=== PATIENT | male | born 1980 | race Two or more races ===

== ENCOUNTER 2020-03-05 08:12 | Observation (INO) | payer OTHER ==
[2020-03-05] VITALS (16 sets, daily range): BP systolic 97–144; BP diastolic 59–82
[~2020-03-05] VITALS: Ht 172.7 cm; Wt 73.5 kg
[~2020-03-05 08:12] MED LIST: Acetaminophen (Non formulary) 100 ML IV ONE; Atropine Sulfate 0.4mg/ml inj IVP PRN; Dexamethasone 20mg/5ml IVP ONE; DiphenhydrAMINE 50mg/ml Inj IVP PRN; FLONASE ALLERG9.9 ML NS; HYDROcodone/Acetamin 5/325 tab ORAL PRN; HYDROcodone/Acetamin 7.5/325 tab ORAL PRN; Hydromorphone 0.5mg/0.5ml inj IVP PRN; Ketorolac 30mg Inj IV PRN; LORazepam Inj 2mg/ml 1ml IV PRN; LR 1000ml 1,000 ML IVLG SCH; Labetalol 5mg/ml 20ml vial IV PRN; Meperidine 25mg/0.5ml Inj (FOR RIGORS ONLY) IV PRN; Metoclopramide 10mg/2ml Inj IVP PRN; Midazolam 2mg/2ml Inj IVP PRN; PATADAY2.5 ML OP; ceFAZolin sod 1 GM in NS 55 ML IVPB ONE; fentaNYL 100 mcg/2 mL IV PRN; oxyCODONE HCL/Acetaminophen 5/325mg ORAL PRN
[2020-03-05] MEDS ORDERED: Thrombin 5000 units TOPIC ONE (08:42)
[2020-03-05] MEDS ORDERED: Lidocaine 1% Plain 30 ml INJ ONE ×2 (08:42→09:07)
[2020-03-05] MEDS ORDERED: Bacitracin 50000 Units Vial ONE (08:42)
[2020-03-05] MEDS ORDERED: Bupivacaine w/Epi 0.5% 30ml Vial INJ ONE (08:42)
[2020-03-05] MEDS ORDERED: Gelfoam Size TOPIC ONE (08:42)
--- NOTE | 2020-03-05 08:56 | Immediate Post-Op Evaluation ---
Immediate Post-Op Evalulation Immediate Post-Op Evalulation Procedure: L5-S1 Microdiscectomy Date of Evaluation: March 05, 2020 Time of Evaluation: 12:07 IV Fluids: 600 LR Blood Products: 0 Estimated Blood Loss: 25 Urinary Output: 0 Blood Pressure Systolic: 99 Blood Pressure Diastolic: 59 Pulse Rate: 82 Respiratory Rate: 16 O2 Sat by Pulse Oximetry: 100 Temperature (Fahrenheit): 97.6 Pain Score (1-10): 2 Nausea: No Vomiting: No Complications 0 Patient Status: awake, reacts, patent, extubated, none Hydration Status: adequate Dru Grams Ancef IV Given Within 1 Hr of Incision: Yes Time Given: 09:56 Angelo Rodríguez MD March 05, 2020 08:56
--- NOTE | 2020-03-05 08:58 | Anethesia Preoperative Eval ---
Anesthesia Pre-op PMH/ROS General Date of Evaluation: March 05, 2020 Time of Evaluation: 09:36 Anesthesiologist: Marcos ASA Score: ASA 1 Mallampati Score Class I : Soft palate, uvula, fauces, pillars visible Class II: Soft palate, uvula, fauces visible Class III: Soft palate, base of uvula visible Class IV: Only hard plate visible Mallampati Classification: Class I Surgeon: June Diagnosis: Back Pain Surgical Procedure: L %-S1 Microdiscectomy Anesthesia History: none Family History: no anesthesia problems Allergies: Coded Allergies: No Known Allergies (Unverified , 03/02/20) Medications: see eMAR Patient NPO?: Yes Past Medical History PSxH Narrative: L Knee SX Anesthesia Pre-op Phys. Exam Physician Exam Last Vital Signs Date Time Temp Pulse Resp B/P (MAP) Pulse Ox O2 Delivery O2 Flow Rate FiO2 03/05/20 08:52 97.8 51 18 111/67 (82) 99 Constitutional: NAD Neurologic: CN 2-12 intact Cardiovascular: RRR Respiratory: CTA Gastrointestinal: S/NT/ND Airway Exam Mallampati Score: Class I MO: full ROM: full Teeth: intact Anesthesia Pre-op A/P Risk Assessment & Plan Assessment: ASA1 Plan: GA, SED, GlideScope Status Change Before Surgery: No Pre-Antibiotics Dru Grams Ancef IV Given Within 1 Hr of Incision: Yes Time Given: 09:56 Angelo Rodríguez MD March 05, 2020 08:58
[2020-03-05] MEDS ORDERED: propofoL 1,000mg/100ml IV ONE (09:00)
[2020-03-05] MEDS ORDERED: HYDROcodone/Acetamin 10/325 tab ORAL PRN (09:00)
[2020-03-05] MEDS ORDERED: Chloraseptic Spray 20mL Bottle ORAL PRN (09:00)
[2020-03-05] MEDS ORDERED: DiphenhydrAMINE 25mg Tab ORAL PRN ×2 (09:00)
[2020-03-05] MEDS ORDERED: fentaNYL 100 mcg/2 mL IV ONE (09:03)
[2020-03-05] MEDS ORDERED: Lidocaine 1% MPF 10mg/ml 5ml ONE (09:04)
[2020-03-05] MEDS ORDERED: Dexamethasone 4mg/ml vial ONE (09:04)
[2020-03-05] MEDS ORDERED: Sodium Chloride 10ml vial INJ ONE (09:04)
[2020-03-05] MEDS ORDERED: Dexamethasone 20mg/5ml ONE (09:06)
[2020-03-05] MEDS ORDERED: Rocuronium Bromide 50mg/5ml Inj IV ONE (09:30)
[2020-03-05] MEDS ORDERED: NS Irrig 1000ml ONE (09:30)
[2020-03-05] MEDS ORDERED: LR 1000ml ONE (09:30)
[2020-03-05] MEDS ORDERED: Sterile Water Irrig 1000ml IRRIG ONE (09:30)
--- NOTE | 2020-03-05 09:53 | Pre-Procedure Note/Attestation ---
Pre-Procedure Note/Attestation Complete Prior to Procedure Planned Procedure: not applicable Procedure Narrative: L5-S1 microdiscectomy Indications for Procedure Pre-Operative Diagnosis: L5-S1 HNP Attestation I attest that I discussed the nature of the procedure; its benefits; risks and complications; and alternatives (and the risks and benefits of such alternatives ), prior to the procedure, with the patient (or the patient's legal product support representative). I attest that, if there was a reasonable possibility of needing a blood transfusion, the patient (or the patient's legal product support representative) was given the [facility] standardized written summary, pursuant to the [place] Blood Safety Act ([place] Health and Safety Code # 1645, as amended). I attest that I re-evaluated the patient just prior to the surgery and that there has been no change in the patient's H&P, except as documented below: Connor Watkins MD March 05, 2020 09:53
--- NOTE | 2020-03-05 10:57 | 48 Hour Post Anesthesia Eval ---
Post Anesthesia Evaluation Procedure: L5-S1 Microdiscectomy Date of Evaluation: March 05, 2020 Time of Evaluation: 14:34 Blood Pressure Systolic: 105 0: 72 Pulse Rate: 56 Respiratory Rate: 18 Temperature (Fahrenheit): 98 O2 Sat by Pulse Oximetry: 100 Airway: patent Nausea: No Vomiting: No Pain Intensity: 2 Hydration Status: adequate Cardiopulmonary Status: Stable Mental Status/LOC: patient returned to baseline Follow-up Care/Observations: 0 Post-Anesthesia Complications: 0 Follow-up care needed: ready to discharge Angelo Rodríguez MD March 05, 2020 10:56
[2020-03-05] MEDS ORDERED: Glycopyrrolate 0.2mg/ml 1ml Vial ONE (11:14)
[2020-03-05] MEDS ORDERED: Neostigmine 1mg/ml 10ml Inj ONE (11:14)
[2020-03-05] MEDS ORDERED: Naloxone 0.4mg/ml Inj ONE (11:27)
--- NOTE | 2020-03-05 11:34 | Brief Operative Note ---
Immediate Post Operative Note Operative Note Pre-op Diagnosis: L5-S1 HNP Procedure: L5-S1 Last motion segment microdiscectomy Post-op Diagnosis: same as pre-op Findings: consistent w/pre-op dx studies Surgeon: June JARRELL Coding Spec: Frances GRIFFITHS Anesthesiologist: Marcos JARRELL Anesthesia: general Specimen: yes Complications: none Condition: stable Fluids: anesthesia Estimated Blood Loss: minimal Drains: none Implant(s) used?: No Connor Watkins MD March 05, 2020 11:34
[2020-03-05] MEDS ORDERED: Naloxone 0.4mg/ml Inj IVP PRN (11:45)
--- NOTE | 2020-03-05 14:05 | NUR ---
NURSE NOTES: Patient arrived on unit via hospital bed. Stable. VSS. Breathing is even and unlabored. No visible signs of distress noted at this time. C/O 7/10 pain in lower back. Patient oriented to room, call light, and unit. Patient instructed to use call light for assistance, verbalized understanding. IV patent and running IVF as ordered. Plan of care discussed with patient, patient instructed to call RN so patient can ambulate and void with assistance. Surgical dressing c/d/i. Patient aware of discharge instructions after voiding and ambulating. Patient has SCD running on bilateral lower legs. Patient is in bed in locked and lowest position with call light within reach. All needs met at this time. All safety measures provided. WIll continue to monitor.
--- NOTE | 2020-03-05 14:05 | NUR ---
NURSE NOTES: Patient a/ox 4. Vitals are stable. No apparent distress.Complains 6/10 pain. Surgical site C/D/I. SCD on bilateral legs. IV site on left hand 18G. I/S at bedside. 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 Side rales up x3. Bed locked and in low position. Bed alarm on. Will continue to monitor.
--- NOTE | 2020-03-05 14:21 | NUR ---
NURSE NOTES: Spoke to patient's regarding patient's arrival on unit.
[2020-03-05] MEDS: Hydromorphone 0.5mg/0.5ml inj IVP PRN (14:46)
[2020-03-05] MEDS: D5 1/2NS 1,000 ML IV SCH ×3 (14:46→23:38)
[2020-03-05] MEDS ORDERED: Tamsulosin 0.4mg cap ORAL SCH (15:00)
--- NOTE | 2020-03-05 16:26 | NUR ---
NURSE NOTES: Patient ambulated x1 with staff assist. Patient is unsteady and c/o nausea. Zofran given x1 as ordered. Patient assisted back to bed without incident. Patient states he has no urge to void yet. Will continue to monitor.
--- NOTE | 2020-03-05 16:31 | Diagnostic Imaging Report ---
XRAY L Spine 1V CLINICAL HISTORY: Back pain. COMPARISON: None FINDINGS: Fluoroscopy independent procedure performed for lumbar localization for decompression. 3.5 seconds of fluoroscopy time utilized by the ordering physician. Total cumulative dose is 1.35 mGy and 0.37633 Gy.cm2. Total of 2 spot images are obtained . IMPRESSION: FLUOROSCOPY GUIDED PROCEDURE.
--- NOTE | 2020-03-05 16:43 | NUR ---
P.T Note: late entry 1600 P.T evaluation completed and tx initiated per spinal protocol. Pt has limited participation in ADL/functional mobilities and gait/locomotion due to drowsiness and nausea. CGA X 1 needed for bed mobility transfers and gait/locomotion. Pt educated on spinal/movement precautions and proper body mechanics to incorporate in ADL/functional activities : able to recall 3/3 and was able to return demonstration with assist. Anticipated DC tonight when drowsiness and nausea resolved.
[2020-03-05] MEDS: HYDROcodone/Acetamin 10/325 tab ORAL PRN ×2 (16:48→20:39)
--- NOTE | 2020-03-05 17:00 | NUR ---
NURSE NOTES: Spoke to Brittanie from Dr. Watkins office, reported patient is unable to void.
--- NOTE | 2020-03-05 17:00 | NUR ---
NURSE NOTES: Patient encouraged to void x2. Patient is not voiding at this time.
--- NOTE | 2020-03-05 18:15 | NUR ---
NURSE NOTES: Pt vomited approximately 500mL greenish liquid vomit. Patient cleaned and changed.
--- NOTE | 2020-03-05 18:30 | NUR ---
NURSE NOTES: Bladder scan done, 540cc noted. RN Paged Dr. Carcamo and Dr. Watkins. Awaiting return call. Patient is stable. No c/o discomfort at this time. VSS.
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
--- NOTE | 2020-03-05 19:00 | NUR ---
NURSE NOTES: New orders for urecholine 25mg PO q8h, first dose now read back. Spoke to pharmacy about verifying medication orders. Will endorse to oncoming RN to give medication as ordered once verified by pharmacy.
[2020-03-05] MEDS: HYDROmorphone 1mg/ml Carpuject SUBQ PRN ×2 (19:11→22:52)
--- NOTE | 2020-03-05 19:15 | NUR ---
NURSE NOTES: Patient and patient's made aware of updated plan of care.
--- NOTE | 2020-03-05 19:30 | NUR ---
HAND-OFF: Report given to Kaia VORA. Patient is stable. Addendum: 03/05/20 at 2007 by DEON MCDOWELL RN Report given to Jairon VORA. Patient is stable.
--- NOTE | 2020-03-05 19:40 | NUR ---
NURSE NOTES: Received report from Mena VORA. Rounding is done. Patient is a/ox4. C/O pain 03/31 and given pain medication about 1899. Surgical site is c/d/i. SCD is on luis miguel legs. Iv site is intact and fluid is running. IS at bedside. Call light within reach. bed is on alarm, locked, lowest position. Will continue to monitor.
[2020-03-05] MEDS: Bethanechol 25mg Tab ORAL SCH (20:38)
--- NOTE | 2020-03-05 22:18 | NUR ---
nurse's notes: per telephone conversation with dr. larry at [phone], dr. argueta is the primary doctor for this patient. relayed this to dick urias. RN to report to dr. argueta about patient's inability to urinate.
--- NOTE | 2020-03-05 23:40 | NUR ---
NURSE NOTES: Done straight cath as ordered; urine output 1000ml
[2020-03-06] VITALS: BP 116/61
[2020-03-06] MEDS: Hydromorphone 0.5mg/0.5ml inj IVP PRN ×2 (02:14→05:41)
[2020-03-06] MEDS: D5 1/2NS 1,000 ML IV SCH ×2 (02:50→08:34)
[2020-03-06] MEDS: Bethanechol 25mg Tab ORAL SCH ×2 (05:41→14:14)
[2020-03-06] MEDS: HYDROcodone/Acetamin 10/325 tab ORAL PRN ×3 (07:36→14:14)
--- NOTE | 2020-03-06 07:45 | NUR ---
NURSE NOTES: Received report from Jairon VORA. Rounding is done. Patient is a/ox4, able to make needs known. No acute respiratory distress noted. Pain medication just given as ordered with breakfast by retail shift supervisor nurse . Surgical site is c/d/i. SCD is on luis miguel legs. Iv site is intact and fluid is running. IS at bedside. Call light within reach. bed is on alarm, locked, lowest position. Will continue to monitor.
--- NOTE | 2020-03-06 07:53 | NUR ---
HAND-OFF: Report given to Chuck VORA. Patient in stable condition.
[2020-03-06] MEDS ORDERED: Tamsulosin 0.4mg cap ORAL SCH (08:17)
[2020-03-06] MEDS ORDERED: Docusate 100mg cap ORAL SCH (09:00)
--- NOTE | 2020-03-06 09:00 | NUR ---
NURSE NOTES: Pt voided 500ml using urinal. Will have PT today.
--- NOTE | 2020-03-06 09:29 | Progress Note ---
DATE: 03/06/2020 ACUTE PAIN MANAGEMENT PHYSICIAN PROGRESS NOTE OBJECTIVE: VITAL SIGNS: Afebrile, pulse 61, respirations 18, blood pressure 116/61, oxygen saturation 98% on supplemental oxygen. LABORATORY STUDIES: No interval laboratory studies. MEDICATIONS: Medication administration record reviewed. Medications include IV fluids, Urecholine, Pepcid, Flomax, Chloraseptic spray, Benadryl, Dilaudid, Mylanta, Phenergan, Zofran, Reading, Tylenol, Soma, and Narcan. I spent over 60 minutes in consultation today. I saw the patient at the bedside with the nurse, DIONY Freeman. I discussed the case with the charge nurse, DIONY Hayes along with the overnight nurse, RN . After the patient's decompressive lumbar spine surgery yesterday, he was unable to void urine. Dr. Ladd was consulted by the surgeon, Dr. Watkins. Dr. Ladd ordered in and out catheterization. I have placed the patient on a q.8h. dosing of Urecholine. He continued his Flomax. The patient was a bit dizzy with ambulation postoperatively. We increased IV fluids to 150 mL an hour. The patient did have intermittent nausea. Zofran dosing was helpful and the patient's nausea symptoms have resolved this morning. He is tolerating advancing diet. He has been using considerable doses of pain medication after his surgical procedure. He has been alternating the p.r.n. Dilaudid doses and I dosed the patient with oral Reading this morning. He has tolerated Reading in the past and his has my prescription for outpatient usage, quantity of 40 tablets. I will add Colace b.i.d. and I have recommended milk of magnesia p.r.n. We will see how the patient ambulates with physical therapy later this morning, possibly even with stairs-training. The patient's is a physician in [facility] and will be able to assist with activities of daily living. Hopefully, the patient will be able to void urine this morning after ambulation and will be able to discharge to home. The patient is in good spirits. He is neurologically intact with 5/5 dorsiflexion and 5/5 plantar flexion in bilateral lower extremities. His left lower extremity paresthesias have vanished after surgery. The patient is understanding regarding his postoperative discharge delay. All questions were answered and the patient is comfortable with the proposed plan. The patient will follow up with Dr. Watkins in the outpatient surgical clinic in approximately one to two weeks for surgical followup. Claudy Carcamo M.D. DR: DEX JOB#: [id number] CC:
--- NOTE | 2020-03-06 13:33 | 48 Hour Post Anesthesia Eval ---
Post Anesthesia Evaluation Procedure: L5-S1 Microdiscectomy Date of Evaluation: March 06, 2020 Time of Evaluation: 13:33 Nausea: No Vomiting: No Denis Nunes MD March 06, 2020 13:33
--- NOTE | 2020-03-06 15:52 | NUR ---
Pt in stable condition. Provided discharge instructions. Pt verbalized understanding. All belongings are accounted for. Removed IV and ID band. Pt was picked up by via car
--- NOTE | 2020-03-07 03:00 | Operative Note - Dictated ---
DATE OF OPERATION: 03/05/2020 ADMITTING/POSTOPERATIVE DIAGNOSES: L5-S1 herniated nucleus polyposis, left with radiculopathy, neurologic deficit (segmentation defect S1/S2). SURGEON: Connor Watkins, PhD, MD ASSEMBLY LINE WORKER: AYE Griffith ANESTHESIA: Angelo Rodríguez M.D. ANESTHESIA: General with intubation. SPECIMEN: Disk fragments to pathology. ESTIMATED BLOOD LOSS: Minimal. COMPLICATIONS: None. POSTOPERATIVE CONDITION: Good/stable. OPERATIVE PROCEDURES: 1. L5-S1, left with microdiscectomy. 2. High-power magnification using sedation. 3. Intraoperative fluoroscopy, interpreted by surgeon. 4. SSEP monitoring. 5. Local anesthetic applied by surgeon. PROCEDURE IN DETAIL: The patient was brought to the operating room and in supine position, general anesthesia with intubation was induced. IV antibiotics and IV Decadron were administered 30 minutes prior to the incision time. The patient was carefully positioned in the prone position. Lumbodorsal spine was sterilely prepped. A spinal needle was placed in the subcutaneous tissue only percutaneously by Dr. Watkins in strict sterile technique. Cross-table imaging was obtained demonstrating the correct levels for further dissection. Level was marked. Needle was removed. Back was reprepped sterilely and draped free in usual sterile fashion. A midline incision over the appropriate interval was sharply placed in the dermis and epidermis. Electrocautery dissection was carried through the subcutaneous tissue through the level of the lumbodorsal fascia was incised, left in midline only over the involved intervals. Dissection was carried with exposure of the pars interarticularis to L5. Marker was placed. Cross-table imaging was obtained under sterile conditions, interpreted by surgeon as correct. Level was marked. Marker was removed. Retractors were placed. Under high-power magnification, the ligamentum flavum at L5-S1, left was resected followed with hemilaminotomy, left. Care was taken to preserve the facet capsule, facet and pars interarticularis integrity. Dissection was carried lateral to the dural tube/exiting nerve root. Minimal utilization of bipolar electrocautery for cauterization of epidural veins. Dissection was carried through the disc space where a herniated nucleus pulposus was identified. Annulotomy was performed under high-power magnification with microdiscectomy, left not exceeding posterior and anterior dimensions of 12 mm. Disk space was irrigated with antibiotic saline. No further fragments were identified. The incision was copiously irrigated with antibiotic-containing saline. No dural tears or leaks occurred anytime obvious during the procedure. SSEP monitoring remained stable at all times. FloSeal was applied followed the reapproximation of the lumbodorsal fascia and subcutaneous tissue. Dermis and epidermis were further reapproximated with staple sutures. Local anesthetic 1% lidocaine without epinephrine was applied at the dermal/subcutaneous interval, bilateral and lateral aspects of the incision as local anesthetic. Sterile bandage was applied, maintained in place with tape. The patient was carefully turned from the prone to the supine position on the transport bed where he was awakened and extubated in the operating room and transported to postop recovery in good stable condition. Connor Watkins M.D. DR: BAMBI JOB#: [id number] CC:
[2020-03-07] MEDS ORDERED: Tamsulosin 0.4mg cap ORAL SCH (09:00)
== END 2020-03-06 15:52 | disposition home or self-care (01) ==
LOC: SUR 08:12 → 3E 13:56
DX: M51.17 Intervertebral disc disorders with radiculopathy, lumbosacral region (principal); M51.26 Other intervertebral disc displacement, lumbar region; Z79.899 Other long term (current) drug therapy
CPT/HCPCS: 63030; 72020; 76000; 94003; 96360; 96374; 96375; 97110; 97116; 97161; 97530; G0378; J0131; J0690; J1100; J1170; J2001; J2250; J2310; J2405; J2550; J2704; J2710; J3010; J7120; 94150; J2180